=== PATIENT | male | born 1945 | race Caucasian/White ===

== ENCOUNTER 2017-07-01 16:13 | Outpatient (CLI) | payer MEDICARE, BC ==
--- NOTE | 2017-07-01 19:53 | RAD ---
LEFT FOOT THREE VIEWS: Date: 07-01-17 FINDINGS: No clear fracture was seen. There probably was an old injury to the proximal phalanx of the fifth toe . There is a slightly more equivocal area at the distal end of the proximal phalanx of the second toe . On one view it suggests that there might be a fracture here, and on another view it does not. The f indings should be correlated with the site of current pain. I cannot even exclude an old injury in th is location. The joints appear normal. The bones are slightly osteopenia, if pain persists then delay ed images in 1-2 weeks could be helpful in seeing subtle bony injuries. Tiny calcaneal spur was noted . Arterial ossifications are present. IMPRESSION: No definite acute findings. However, correlate findings in the distal end of the proximal phalanx of the second toe with physical exam. If this site is painful, treat as fractured and repeat x-ray in 1- 2 weeks. POS: [facility]
== END 2017-07-01 16:14 | disposition home or self-care (01) ==
LOC: BURRAD 16:13
PROVIDERS: ATTEND Family Medicine
DX: M79.672 Pain in left foot (principal)

== ENCOUNTER 2018-05-05 23:06 | Emergency (ER) | payer MEDICARE, BC ==
[2018-05-05 23:36] LABS: Hemoglobin 13.8 g/dL (14.0-18.0); Mean Corpuscular HGB CONC 37.2 g/dL (32.0-36.0); Mean Corpuscular Hemoglobin 32.9 pg (27.0-31.0); Mean Corpuscular Volume 88.5 fL (78.0-98.0); Mean Platelet Volume 7.9 fL (7.4-10.4); Platelet Count 220 thou/uL (130-400); RBC Distribution Width 11.8 % (11.5-14.5); Red Blood Cell (RBC) Count 4.19 mill/uL (4.70-6.10)
--- NOTE | 2018-05-05 23:41 | RAD ---
SINGLE VIEW OF THE CHEST: Comparison: 05-12-10 History: Chest pain, shortness of breath. FINDINGS: Single view of the chest shows a normal sized cardiomediastinal silhouette. There is no evidence of c onsolidation, mass, or pleural effusion. The bones are unremarkable. IMPRESSION: No evidence of acute cardiopulmonary disease. POS: [facility]
[2018-05-05 23:45] LABS: ALT (SGPT) 27 U/L (8-55); AST (SGOT) 19 U/L (5-34); Albumin 3.9 g/dL (3.4-4.8); Alkaline Phosphatase 101 U/L (40-150); Anion Gap 14 mmol/L (10-20); BUN (Urea Nitrogen) 20 mg/dL (8.4-25.7); Bilirubin, Total 0.3 mg/dL (0.2-1.2); Calc. Creatinine Clearance 0 mL/min (70-130); Calcium 9.5 mg/dL (7.8-10.44); Carbon Dioxide 24 mmol/L (23-31); Chloride 109 mmol/L (98-107); Estimated GFR-MDRD Greater than 90; Glucose 182 mg/dL (83-110); Potassium 3.8 mmol/L (3.5-5.1); Protein, Total 6.9 g/dL (5.8-8.1); Sodium 143 mmol/L (136-145)
--- NOTE | 2018-05-05 23:48 | CT ---
CT BRAIN WITHOUT CONTRAST: Comparison: None. History: Weakness in the left arm, clumsiness. Technique: Multiple contiguous axial images were obtained in a CT of the brain without contrast. FINDINGS: There are scattered hypodensities in the subcortical and periventricular white matter, likely seconda ry to small vessel ischemic disease. No large confluent infarction is seen. There is no evidence of h ydrocephalus, intracranial hemorrhage, or extraaxial fluid collection. The calvarium and overlying soft tissues are unremarkable. A mucous retention cyst is seen in the rig ht maxillary sinus. The other visualized paranasal sinuses and mastoid air cells are well aerated. IMPRESSION: No evidence of acute intracranial abnormality. POS: [facility]
[2018-05-05 23:54] LABS: Eosinophils 1 % (0-10); Lymphocytes 38 % (21-51); MDiff Complete? YES; Monocytes 3 % (0-10); Neutrophil 54 % (42-75); PLT Morphology Comment Appears Adequate; RBC Morphology Normal; Reactive Lymphocytes 4 % (0-10)
== END 2018-05-06 00:40 | disposition home or self-care (01) ==
LOC: BURERS 23:06
DX: G45.9 Transient cerebral ischemic attack, unspecified (principal); E11.9 Type 2 diabetes mellitus without complications; I10 Essential (primary) hypertension; Z85.828 Personal history of other malignant neoplasm of skin; Z79.82 Long term (current) use of aspirin; Z79.899 Other long term (current) drug therapy; Z79.84 Long term (current) use of oral hypoglycemic drugs
CPT/HCPCS: 70450; 71045; 80053; 84484; 85025; 93005